=== PATIENT | male | born 2000 | race Caucasian/White ===

== ENCOUNTER 2020-02-11 10:35 | Emergency (ER) | payer SELFPAY ==
[~2020-02-11] VITALS: Ht 165.1 cm; Wt 52.7 kg
[2020-02-11 11:22] VITALS: TEMP 97.9
[2020-02-11 12:34] VITALS: BP 119/59; PULSE 69
== END 2020-02-11 12:35 | disposition home or self-care (01) ==
LOC: COL.ER 10:35
DX: S90.31XA Contusion of right foot, initial encounter (principal); Z88.0 Allergy status to penicillin; Z79.1 Long term (current) use of non-steroidal anti-inflammatories (NSAID); W50.1XXA Accidental kick by another person, initial encounter; Y93.75 Activity, martial arts